=== PATIENT | male | born 1980 | race Caucasian/White ===

== ENCOUNTER 2017-09-15 11:19 | Emergency (ER) | payer OTHER ==
[2017-09-15 11:39] VITALS: TEMP 97.5
--- NOTE | 2017-09-15 13:33 | EDPHY ---
H & P Smoking Status: Never smoked Time Seen by Provider: 09/15/17 12:09 HPI/ROS: CHIEF COMPLAINT: Right shoulder injury HISTORY OF PRESENT ILLNESS: 37-year-old male presents to the emergency department with injury to his right shoulder. The patient fell skiing earlier this afternoon at [place] injured his right shoulder. He is right-hand dominant. He denies hitting his head or losing consciousness. Denies neck or back pain. Has pain with range of motion. ROS: He denies numbness or tingling in his fingers, pain in his right wrist or elbow. (Grisel Hightower) Past Medical/Surgical History: Orthopedic surgery left knee (Grisel Hightower) Social History: and lives in [place] (Grisel Hightower) Physical Exam: On examination the patient has palpable crepitus and pain with palpation over the right distal clavicle. No obvious deformity. Tenderness with palpation over the AC joint on the right side. Limited internal rotation secondary to pain. Full external rotation. Nontender to palpate along cervical, thoracic or lumbar spine. Chest is clear to auscultation with no wheezing, rhonchi or rales. Heart regular rate rhythm without murmur. (Grisel Hightower) Constitutional: Initial Vital Signs Temperature (C) 36.4 C 09/15/17 11:36 Heart Rate 58 L 09/15/17 11:36 Respiratory Rate 18 09/15/17 11:36 Blood Pressure 138/89 H 09/15/17 11:36 O2 Sat (%) 98 09/15/17 11:36 O2 Delivery Mode Room Air Allergies/Adverse Reactions: No Known Allergies Allergy (Unverified 09/15/17 11:36) Home Medications: Medication Instructions Recorded NK [No Known Home Meds] 09/15/17 MDM/Departure - MDM Imaging: Discussed imaging studies w/ electrician machine shop Radiologist, I viewed and interpreted images myself - MDM Procedures: The patient was placed in a sling and examined post application in good placement with normal BUSINESS SERVICES ANALYST. (Grisel Hightower) ED Course/Re-evaluation: 37-year-old male presents to the emergency department with right shoulder injury. X-rays reveal distal clavicle fracture. He was placed in a sling and given orthopedic referral. (Grisel Hightower) I did not see this patient while he was in the emergency department. However his care was discussed with the PA while the patient was in the department. I agree with treatment plan and management (Aaron Charles) - Depart Disposition: Home, Routine, Self-Care Clinical Impression: Right distal clavicle fracture Condition: Good Instructions: Clavicle Fracture (ED) Additional Instructions: Sling for comfort and support. Ibuprofen 600 mg every 8 hr as needed for pain. Referrals: Erwin Portillo MD [Medical Doctor] - 2-3 days without fail (Orthopedic surgeon on-call)
[2017-09-15 14:00] VITALS: BP 136/80; PULSE 66; RESP 16; O2SAT 94
== END 2017-09-15 13:59 | disposition home or self-care (01) ==
DX: S42.034A Nondisplaced fracture of lateral end of right clavicle, initial encounter for closed fracture (principal); V00.321A Fall from snow-skis, initial encounter; Y92.89 Other specified places as the place of occurrence of the external cause; Y99.8 Other external cause status; Y93.23 Activity, snow (alpine) (downhill) skiing, snowboarding, sledding, tobogganing and snow tubing
CPT/HCPCS: A4565